=== PATIENT | female | born 1985 | race Caucasian/White ===

== ENCOUNTER 2017-11-03 08:36 | Emergency (ER) | payer SELFPAY ==
[2017-11-03 09:02] VITALS: BP 133/75
--- NOTE | 2017-11-03 09:57 | RAD ---
INDICATION: Right knee pain COMPARISON: None TECHNIQUE: AP, lateral, and oblique views were obtained. FINDINGS: There is a proximal tibial avulsion fracture spanning the medial and lateral tibial spines. There is minor distraction as evident on the lateral radiograph. There are no other acute bony findings. There is a joint effusion. IMPRESSION: INTERCONDYLAR FRACTURE PROXIMAL TIBIA. JOINT EFFUSION.
--- NOTE | 2017-11-03 10:22 | UC ---
Knee Pain HPI - HPI Summary HPI Summary: 31 year old female here for right knee pain s/p fall from a horse two weeks ago. She reports since her boss was hospitalized for severe illness, she didnt have time to go seek medical care. Reports severe right knee pain, unable to bear weight. She has been using crutches with knee immobilizer. Reports cramping and achy pain but no N/V. No other complaints. - History of Current Complaint Chief Complaint: UCLowerExtremity Stated Complaint: R KNEE INJURY Time Seen by Provider: 11/03/17 09:20 Hx Last Menstrual Period: IUD in place Severity Initially: Mild Severity Currently: Mild Pain Intensity: 7 Character: Sharp Aggravating Factor(s): Movement Alleviating Factor(s): Cold - Allergies/Home Medications Allergies/Adverse Reactions: Allergies Allergy/AdvReac Type Severity Reaction Status Date / Time cefaclor [From [facility]] Allergy Unknown Verified 11/03/17 08:58 Reaction Details Home Medications: Home Medications Ibuprofen TAB* [Motrin TAB* 400 MG] 400 mg PO Q6H PRN 11/03/17 [History Confirmed 11/03/17] PMH/Surg Hx/FS Hx/Imm Hx Previously Healthy: Yes - Surgical History Surgical History: None - Social History Alcohol Use: None Substance Use Type: None Smoking Status (MU): Never Smoked Tobacco Review of Systems Constitutional: Negative Skin: Negative Eyes: Negative ENT: Negative Respiratory: Negative Cardiovascular: Negative Gastrointestinal: Negative Genitourinary: Negative Motor: Negative Neurovascular: Negative Musculoskeletal: Decreased ROM, Other: Neurological: Negative Psychological: Negative All Other Systems Reviewed And Are Negative: No Physical Exam Triage Information Reviewed: Yes Appearance: Well-Appearing Vital Signs: Initial Vital Signs Temp 37.0 C 11/03/17 08:59 Pulse 102 11/03/17 08:59 Resp 18 11/03/17 08:59 BP 133/75 11/03/17 08:59 Pulse Ox 99 11/03/17 08:59 Neck exam: Normal Respiratory Exam: Normal Musculoskeletal Exam: Normal Musculoskeletal: Positive: Edema @ - pain and swelling over right knee, no bruising, no lacerations TTP over proximal tib Psychological Exam: Normal Diagnostics - Radiology No standard instances Xray Interpretation: Positive (See Comments) Radiology Interpretation Completed By: Radiologist - proximal intercondylar tibia fracture Knee Pain Course/Dx - Differential Dx/Diagnosis Differential Diagnosis/HQI/PQRI: Abrasion, Fracture (Closed), Sprain, Strain Provider Diagnoses: Proximal intercondylar tibia fracture Discharge - Sign-Out/Discharge Documenting (check all that apply): Discharge/Admit/Transfer - Discharge Plan Condition: Good Disposition: HOME Prescriptions: Naproxen [Naproxen 500 mg tab] 500 mg PO BID PRN #20 tablet.dr ROJAS Reason: Pain Patient Education Materials: Swollen Knee Joint (ED), Knee Pain (ED) Forms: *Work Release Referrals: No Primary Care Phys,NOPCP [Primary Care Provider] - Saad Gibson MD [Medical Doctor] - Additional Instructions: You have fracture of the proximal intercondylar tibia fracture. You need to continue to wear knee immobilizer and bear weight as tolerated. - Billing Disposition and Condition Condition: GOOD Disposition: HOME
== END 2017-11-03 11:15 | disposition home or self-care (01) ==
LOC: UCEAST 08:36
DX: S82.111A Displaced fracture of right tibial spine, initial encounter for closed fracture (principal); V80.010A Animal-rider injured by fall from or being thrown from horse in noncollision accident, initial encounter; Y93.52 Activity, horseback riding; Y92.9 Unspecified place or not applicable; M25.461 Effusion, right knee; Z88.1 Allergy status to other antibiotic agents
CPT/HCPCS: 99213; G0463